=== PATIENT | female | born 1950 | race Caucasian/White ===

== ENCOUNTER → 2017-02-17 | Outpatient (CLI) | payer MEDICARE ==
[~2017-02-17] VITALS: Ht 162.6 cm; Wt 77.1 kg
[~2017-02-17] MED LIST: NS 1,000 ML IV ONE; PROPOFOL 200 MG/20 ML VIAL As Ordered ONE
--- NOTE | 2017-02-17 11:14 | ROOR ---
Patient Name: Heike Landrum Procedure Date: 02/17/2017 10:34 AM Date of : 1950 Age: 67 Room: [facility] Gender: Female Note Status: Finalized Procedure: Colonoscopy Indications: Screening for colorectal malignant neoplasm Providers: Jeramy Palomino Jr, MD Referring MD: CHELSEA SPAULDING DO Requesting Provider: Medicines: Propofol per Anesthesia Complications: No immediate complications. Procedure: Pre-Anesthesia Assessment: - Prior to the procedure, a History and Physical was performed, and patient medications and allergies were reviewed. The patient is competent. The risks and benefits of the procedure and the sedation options and risks were discussed with the patient. All questions were answered and informed consent was obtained. Patient identification and proposed procedure were verified by the physician and the nurse in the pre-procedure area and in the procedure room. Mental Status Examination: alert and oriented. Airway Examination: normal oropharyngeal airway and neck mobility. Respiratory Examination: clear to auscultation. CV Examination: normal. ASA Grade Assessment: II - A patient with mild systemic disease. After reviewing the risks and benefits, the patient was deemed in satisfactory condition to undergo the procedure. The anesthesia plan was to use moderate sedation / analgesia (conscious sedation). Immediately prior to administration of medications, the patient was re-assessed for adequacy to receive sedatives. The heart rate, respiratory rate, oxygen saturations, blood pressure, adequacy of pulmonary ventilation, and response to care were monitored throughout the procedure. The physical status of the patient was re-assessed after the procedure. The Colonoscope was introduced through the anus and advanced to the cecum, identified by appendiceal orifice and ileocecal valve. The colonoscopy was performed without difficulty. The patient tolerated the procedure well. The quality of the bowel preparation was adequate and good. Findings: The perianal exam findings include non-thrombosed internal hemorrhoids, internal hemorrhoids that prolapse with straining, but spontaneously regress to the resting position (Grade II) and internal hemorrhoids that prolapse with straining, but require manual replacement into the anal canal (Grade III). Multiple small-mouthed diverticula were found in the sigmoid colon. Multiple small and large-mouthed diverticula were found in the transverse colon and ascending colon. A medium polyp was found in the ileocecal valve. The polyp was hyperplastic and sessile. The polyp was removed with a hot snare. Resection and retrieval were complete. A medium polyp was found in the recto-sigmoid colon. The polyp was removed with a hot snare. Resection and retrieval were complete. The rectum, descending colon, cecum and appendiceal orifice appeared normal. Impression: - Non-thrombosed internal hemorrhoids, internal hemorrhoids that prolapse with straining, but spontaneously regress to the resting position (Grade II) and internal hemorrhoids that prolapse with straining, but require manual replacement into the anal canal (Grade III) found on perianal exam. - Diverticulosis in the sigmoid colon. - Diverticulosis in the transverse colon and in the ascending colon. - One medium polyp at the ileocecal valve, removed with a hot snare. Resected and retrieved. - One medium polyp at the recto-sigmoid colon, removed with a hot snare. Resected and retrieved. - The rectum, descending colon, cecum and appendiceal orifice are normal. Recommendation: - Discharge patient to home (ambulatory). - Repeat colonoscopy in 3 - 5 years for surveillance based on pathology results. Jeramy Palomino MD Jeramy Palomino Jr, MD 02/17/2017 11:14:08 AM This report has been signed electronically. Number of Addenda: 0 Note Initiated On: 02/17/2017 10:34 AM Estimated Blood Loss: Estimated blood loss: none.
[2017-02-17 11:40] VITALS: BP 113/80
== END | disposition home or self-care (01) ==
LOC: M OPP 09:40
PROVIDERS: ATTEND Surgery
DX: Z12.11 Encounter for screening for malignant neoplasm of colon (principal); D12.0 Benign neoplasm of cecum; D12.7 Benign neoplasm of rectosigmoid junction; K64.2 Third degree hemorrhoids; K64.1 Second degree hemorrhoids; K57.30 Diverticulosis of large intestine without perforation or abscess without bleeding; Z86.19 Personal history of other infectious and parasitic diseases; Z78.0 Asymptomatic menopausal state; Z79.899 Other long term (current) drug therapy; Z80.49 Family history of malignant neoplasm of other genital organs; Z80.8 Family history of malignant neoplasm of other organs or systems; Z87.891 Personal history of nicotine dependence

== ENCOUNTER → 2017-06-02 | Outpatient (CLI) | payer MEDICARE | LOC: M RAD 08:38 | DX: Z12.31 Encounter for screening mammogram for malignant neoplasm of breast (principal) | CPT/HCPCS: G0202 ==

== ENCOUNTER → 2017-08-05 | Outpatient (CLI) | payer MEDICARE | LOC: M RAD 12:50 | DX: N63.10 Unspecified lump in the right breast, unspecified quadrant (principal) | CPT/HCPCS: 77065 ==

== ENCOUNTER → 2020-04-06 | Outpatient (CLI) | payer SELFPAY | LOC: M LABSMTC 10:53 | PROVIDERS: ATTEND Pediatrics | DX: Z20.828 Contact with and (suspected) exposure to other viral communicable diseases (principal) ==

== ENCOUNTER → 2021-04-23 | Outpatient (CLI) | payer MEDICARE ==
[~2021-04-23] MED LIST changes: +ACET-897 PO; +ALEV220T22 PO; -NS 1,000 ML IV ONE; -PROPOFOL 200 MG/20 ML VIAL As Ordered ONE; +VITMTA PO
== END ==
LOC: M LABSMTC 09:58
PROVIDERS: ATTEND Anesthesiology
DX: Z01.812 Encounter for preprocedural laboratory examination (principal); Z20.822 Contact with and (suspected) exposure to COVID-19

== ENCOUNTER 2021-04-28 10:05 | Day surgery (SDC) | payer MEDICARE ==
[~2021-04-28] VITALS: Ht 165.1 cm; Wt 85.7 kg
[~2021-04-28 10:05] MED LIST changes: +NS 1,000 ML IV ONE
[2021-04-28] MEDS ORDERED: propofoL 200 MG/20 ML VIAL As Ordered ONE ×2 (11:50→12:01)
--- NOTE | 2021-04-28 12:07 | ROOR ---
Patient Name: Heike Landrum Procedure Date: 04/28/2021 11:48 AM Date of : 1950 Age: 71 Room: [facility] Gender: Female Note Status: Finalized Procedure: Colonoscopy Indications: High risk colon cancer surveillance: Personal history of colonic polyps Providers: Jeramy Palomino Jr, MD Referring MD: CHELSEA SPAULDING DO Requesting Provider: Medicines: Propofol per Anesthesia Complications: No immediate complications. Procedure: Pre-Anesthesia Assessment: - Prior to the procedure, a History and Physical was performed, and patient medications and allergies were reviewed. The patient is competent. The risks and benefits of the procedure and the sedation options and risks were discussed with the patient. All questions were answered and informed consent was obtained. Patient identification and proposed procedure were verified by the physician and the nurse in the pre-procedure area and in the procedure room. Mental Status Examination: alert and oriented. Airway Examination: normal oropharyngeal airway and neck mobility. Respiratory Examination: clear to auscultation. CV Examination: normal. ASA Grade Assessment: II - A patient with mild systemic disease. After reviewing the risks and benefits, the patient was deemed in satisfactory condition to undergo the procedure. The anesthesia plan was to use moderate sedation / analgesia (conscious sedation). Immediately prior to administration of medications, the patient was re-assessed for adequacy to receive sedatives. The heart rate, respiratory rate, oxygen saturations, blood pressure, adequacy of pulmonary ventilation, and response to care were monitored throughout the procedure. The physical status of the patient was re-assessed after the procedure. The Colonoscope was introduced through the anus and advanced to the cecum, identified by appendiceal orifice and ileocecal valve. The colonoscopy was performed without difficulty. The patient tolerated the procedure well. The quality of the bowel preparation was adequate. Findings: The rectum, recto-sigmoid colon, descending colon, transverse colon, cecum, appendiceal orifice and ileocecal valve appeared normal. Multiple small and large-mouthed diverticula were found in the sigmoid colon and ascending colon. Impression: - The rectum, recto-sigmoid colon, descending colon, transverse colon, cecum, appendiceal orifice and ileocecal valve are normal. - Diverticulosis in the sigmoid colon and in the ascending colon. - No specimens collected. Recommendation: - Discharge patient to home (ambulatory). - Repeat colonoscopy in 5 years for surveillance. Procedure Code(s): --- Professional --- 37011, Colonoscopy, flexible; diagnostic, including collection of specimen(s) by brushing or washing, when performed (separate procedure) Diagnosis Code(s): --- Professional --- Z86.010, Personal history of colonic polyps K57.30, Diverticulosis of large intestine without perforation or abscess without bleeding CPT copyright 2019 [employer]. All rights reserved. The codes documented in this report are preliminary and upon paid search analyst review may be revised to meet current compliance requirements. Jeramy Palomino MD Jeramy Palomino Jr, MD 04/28/2021 12:07:35 PM Electronically signed by Jeramy Palomino Jr, MD Number of Addenda: 0 Note Initiated On: 04/28/2021 11:48 AM Estimated Blood Loss: Estimated blood loss: none.
[2021-04-28 12:25] VITALS: BP 135/68
== END 2021-04-28 12:37 | disposition home or self-care (01) ==
LOC: M OPP 10:05
PROVIDERS: ATTEND Surgery
DX: K57.30 Diverticulosis of large intestine without perforation or abscess without bleeding (principal); Z86.010 Personal history of colon polyps; Z79.899 Other long term (current) drug therapy